=== PATIENT | male | born 1945 | race Caucasian/White ===

== ENCOUNTER 2016-09-11 17:13 | Inpatient (IN) ==
--- NOTE | 2016-09-11 17:52 | Diag Imaging Result Doc PS360 ---
EXAM: CHEST-2 VIEWS - 09/11/2016 HISTORY: sick TECHNIQUE: Chest two views COMPARISON: None. FINDINGS: Heart size is within normal limits. There is fullness of the upper mediastinum. There is a small granuloma from old granulomatous disease at the right base. The remainder of the lungs appear essentially clear. There is no pleural effusion or pneumothorax identified. There is thoracic spondylosis noted. IMPRESSION: Nonspecific fullness of upper mediastinum. If further imaging evaluation is desired, CT thorax is recommended. No evidence of pneumonia. Electronically signed by Ankit Lovett 09/11/2016 5:50 PM
[2016-09-11] MEDS ORDERED: OFIRMEV 1000 MG/ISOTONIC SOLN 1,000 MG/100 ML BOTTLE IV ONE (18:13)
[2016-09-11] MEDS ORDERED: NS 1,000 ML IV ONE ×2 (18:13→19:11)
[2016-09-11] MEDS ORDERED: ZOFRAN IV ONE (18:14)
[2016-09-11 18:58] LABS: BASO% 0.2 % (0.0-0.8); EOS# 0.05 X1000 (0.0-0.7); HEMATOCRIT 42.9 % (42.0-52.0); HEMOGLOBIN 14.1 g/dL (14.0-18.0); LYMPH# 0.22 X1000 (1.2-3.4); LYMPH% 4.4 % (20.5-51.1); MANUAL DIFF NEEDED? NO; MCH 28.6 PG (27-31); MCHC 32.9 g/dL (33-37); MONO# 0.01 X1000 (0.11-0.59); MONO% 0.2 % (1.7-9.3); MPV 10.8 FL (7.4-10.4); NEUT% 94.2 % (42.2-75.2); PLT 156 X1000 (130-400); RBC 4.93 XMIL (4.7-6.1)
[2016-09-11 18:59] LABS: ALBUMIN 4.1 g/dL (3.5-5.0); CALCIUM 8.9 mg/dL (8.8-10.2); MAGNESIUM 1.7 mg/dL (1.5-2.7); POTASSIUM 4.2 mmol/L (3.5-5.1); TOTAL BILIRUBIN 0.79 mg/dL (0.20-1.00); TOTAL PROTEIN 7.3 g/dL (6.3-8.3)
[2016-09-11] MEDS ORDERED: MORPHINE IV ONE (19:21)
[2016-09-11] MEDS ORDERED: TORADOL IV ONE (19:22)
[2016-09-11 19:40] LABS: URINE CULTURE NEEDED? NO; URINE MICRO REVIEW NEEDED? NO; URINE SOURCE CLEAN CATCH
[2016-09-11 19:54] LABS: BILIRUBIN URINE NEGATIVE (NEGATIVE); BLOOD URINE NEGATIVE (NEGATIVE); COLOR YELLOW; GLUCOSE URINE NEGATIVE (NEGATIVE); LEUKOCYTES URINE NEGATIVE (NEGATIVE); NITRITE URINE NEGATIVE (NEGATIVE); PROTEIN URINE TRACE mg/dL (NEGATIVE); SP GRAVITY URINE 1.015; TURBIDITY URINE CLEAR (CLEAR); UR EPITHELIAL CELLS <10 /HPF (<10); URINE BACTERIA NEGATIVE /HPF; URINE RBC <10 /HPF (<10); URINE WBC <10 /HPF (<10); UROBILINOGEN URINE NORMAL (NORMAL)
[2016-09-11] MEDS ORDERED: ZOSYN 3.375 GM/NS 3.375 GM/50 ML IVPB IV ONE (20:00)
[2016-09-11] MEDS ORDERED: VANCOMYCIN 1 GM/NS 1 GM/250 ML IVPB IV ONE (20:00)
--- NOTE | 2016-09-11 21:21 | Diag Imaging Result Doc PS360 ---
EXAM: RENAL STONE SEARCH - 09/11/2016 HISTORY: fever, hx of kidney stones TECHNIQUE: Without contrast. Dose reduction protocol. COMPARISON: 08/02/2014 FINDINGS: There is bilateral perinephric scarring. There is a possible tiny nonobstructing stone at the upper left kidney. There is no obstructing renal stone identified. There is no hydronephrosis identified. The larger urinary bladder stone seen on previous exam is no longer seen. The urinary bladder sanchez are mildly thickened diffusely similar to the previous exam. There is colonic diverticulosis which is most extensive at the sigmoid and distal descending colon. There is no obvious diverticulitis. There is no abscess or free air identified. There is no bowel obstruction. The appendix is unremarkable. There is a small fat-containing umbilical hernia. The gallbladder surgically absent. There are small retroperitoneal lymph nodes similar to the previous exam. There are lumbar spine degenerative changes noted. IMPRESSION: Possible tiny nonobstructing stone in upper left kidney. No evidence of obstructing renal stone or hydronephrosis. Possible urinary bladder cystitis versus chronic change. No urinary bladder stone identified. Extensive diverticulosis along distal colon. No obvious diverticulitis. No bowel obstruction. Small retroperitoneal lymph nodes similar to prior. Lumbar spine degenerative changes. Electronically signed by Ankit Lovett 09/11/2016 9:18 PM
--- NOTE | 2016-09-11 21:44 | PROVIDER DOCUMENTATION ---
This chart was entered by Isael Jorge Scribe, acting as scribe for Dao Sheehan MD. HPI-Fever - General Chief Complaint: Flu Symptoms Stated Complaint: VOMITING Time Seen by Provider: 09/11/16 17:20 Source: patient Allergies/Adverse Reactions: Patient Allergies Allergy/AdvReac Type Severity Reaction Status Date / Time tamsulosin HCl * AdvReac Unknown "MADE ME Verified 09/11/16 17:57 [From Flomax] FEEL BAD" Home Medications: Home Medication List Medication Instructions Recorded Confirmed Last Taken Type ATORVAstatin [Lipitor] 20 mg PO QHS 08/16/14 09/11/16 09/10/16 22:00 History Buspirone [Buspar] 15 mg PO BID 08/16/14 09/11/16 09/11/16 08:00 History Esomeprazole Magnesium [Nexium] 20 mg PO DAILY 08/16/14 09/11/16 09/11/16 08:00 History Aspirin [Aspirin EC] 81 mg PO DAILY 09/04/15 09/11/16 09/11/16 08:00 History - History of Present Illness-Fever Nature of Presenting Problem: Pt is a 71 yom who presents to ER with CC of sudden onset of chills and generalized muscle aches starting at 1230 today after getting out of the shower. Pt reports recent hx of renal stones and also reports hx of neuropathy and stubbed his toes several days ago and states that his wound is not healing. Pt reports that he did not check his temperature at home, but states that his thermostat was set on 74 F, but pt felt as though is were 0 F. Pt also reports 2 episodes of emesis today and mild to moderate abdominal pain. Fever Severity/Quality: reports: greater than 102 F (checked in ER) Onset/Duration: reports: abrupt, this afternoon (1230) Timing: reports: still present Severity: reports: moderate Context: reports: none Recent Illness?: reports: other (renal stones) Cognitive Baseline: alert, oriented x3 Associated Symptoms: reports: fever/chills, headaches, muscle aches, nausea, vomiting. denies: arm pain, back/neck pain, chest pain, cough, diarrhea, loss of appetite, shortness of breath, syncope, weakness, trouble walking Similar Symptoms Previously?: Yes Recently seen or treated by another doctor?: Yes Review of Systems - Adult - REVIEW OF SYSTEMS - ADULT Constitutional: reports: chills, fever. denies: fatique, night sweats, weight gain, weight loss Eyes: reports: other (photophobia). denies: discharge, dry eyes, decreased vision, blurred vision, double vision, eye pain, redness Ears, Nose, Mouth & Throat: reports: no symptoms reported Cardiovascular: reports: no symptoms reported Respiratory: reports: no symptoms reported Gastrointestinal: reports: nausea, vomiting. denies: abdominal pain, hematemesis, constipation, diarrhea, difficulty swallowing, frequent heartburn, poor appetite, rectal bleeding Genitourinary: reports: no symptoms reported Musculoskeletal: reports: muscle aches, muscle weakness. denies: bone pain, back pain, frequent leg cramps, joint pain, joint swelling, neck pain Integumentary: reports: no symptoms reported Neurological: reports: headache/migraines. denies: ataxia, dizziness/vertigo, loss of balance, numbness, paresthesia, seizure, slurred speech, syncope, tremors Psychiatric: reports: no symptoms reported Endocrine: reports: no symptoms reported Hematologic/Lymphatic: reports: no symptoms reported Allergic/Immunologic: reports: no symptoms reported All Other Systems: Reviewed and Negative Past History - Adult - PAST MEDICAL HISTORY-ADULT Review of Records: reports: Nursing Assessment Review, Medications Reviewed Cardiovascular: reports: A-Fib (non medicated), hyperlipidemia Genitourinary: reports: kidney stones. denies: chronic UTI's, prostatitis, testicular injury - PRIOR SURGERIES/PROCEDURES Surgical/Procedure History: reports: other (renal stone surgeries) - IMMUNIZATION STATUS Childhood Immunizations: See Nurse Assessment Flu Vaccine: See Nurse Assessment - FAMILY HISTORY Family History: reviewed, not pertinent Physical Exam-General - PHYSICAL EXAM-ADULT Initial Vital Signs Reviewed: Yes - CONSTITUTIONAL General Appearance: appears well, alert, mild distress - NECK Neck: non-tender, full range of motion, supple - RESPIRATORY Respiratory: chest non-tender, lungs clear, normal breath sounds, no pleuratic chest pain, no respiratory distress, no accessory muscle use. negative: respiratory distress, decreased breath sounds, accessory muscle use, wheezing - CARDIOVASCULAR Cardiovascular: normal peripheral pulses, regular rate, rhythm. negative: bradycardia, tachycardia, irregularly irregular - GASTROINTESTINAL (ABDOMEN) Abdominal Exam: normal bowel sounds, non tender, soft, no organomegaly, no pulsatile mass. negative: abnormal bowel sounds, guarding, rebound, tenderness - MUSCULOSKELETAL Back Exam: no CVA tenderness, no vertebral tenderness. negative: CVA tenderness , vertebral tenderness Extremity: normal range of motion, normal gait, normal inspection, no pedal edema, no calf tenderness, normal capillary refill, pelvis stable, tenderness ( bruise on 3rd toe of right foot, no signs of laceration or trauma). negative: non-tender, deformity, erythema, inflammation, swelling - SKIN Integumentary: tenderness (right foot, 3rd toe), other (bruise on 3rd toe of right foot). negative: abrasion(s), diaphoresis, ecchymosis, erythema, laceration(s), swelling, warm - PSYCHIATRIC Psych/Mental Status: normal mood/affect, normal thought content, normal thought process, oriented x 3 Progress - PLAN OF CARE/RESULTS Progress/Plan/Lab Results: Vital Signs - 8 hr 09/11/16 17:16 Temperature 102.6 F H Pulse Rate 92 H Respiratory Rate 18 Blood Pressure 133/74 O2 Sat by Pulse Oximetry 100 Laboratory Results - last 24 hr 09/11/16 09/11/16 09/11/16 18:14 18:14 18:14 WBC 5.04 RBC 4.93 Hgb 14.1 Hct 42.9 MCV 87.0 MCH 28.6 MCHC 32.9 L RDW Std Deviation 14.4 Plt Count 156 MPV 10.8 H Immature Gran % (Auto) 0.0 Neut % (Auto) 94.2 H Lymph % (Auto) 4.4 L Kershaw % (Auto) 0.2 L Eos % (Auto) 1.0 Baso % (Auto) 0.2 Immature Gran # (Auto) 0.00 Neut # (Auto) 4.75 Lymph # (Auto) 0.22 L Kershaw # (Auto) 0.01 L Eos # (Auto) 0.05 Baso # (Auto) 0.01 Sodium 142 Potassium 4.2 Chloride 103 Carbon Dioxide 22 L Anion Gap 17 BUN 19 Creatinine 1.3 H Estimated GFR/1.73 m2 54 BUN/Creatinine Ratio 15 Glucose 90 Calculated Osmolality 285 Calcium 8.9 Magnesium 1.7 Total Bilirubin 0.79 AST 31 ALT 33 Alkaline Phosphatase 74 Total Protein 7.3 Albumin 4.1 Globulin 3.2 Albumin/Globulin Ratio 1.3 Plasma Lactate 2.6 H Urine Source Urine Color Urine Turbidity Urine pH Ur Specific Hilton Urine Protein Ur Glucose (Stick) Ur Ketones (Stick) Urine Blood Urine Nitrite Urine Bilirubin Urobilinogen Dipstick Urine Leukocytes Urine WBC (Auto) Urine RBC (Auto) U Epithel Cells (Auto) Urine Bacteria (Auto) 09/11/16 09/11/16 19:24 19:27 WBC RBC Hgb Hct MCV MCH MCHC RDW Std Deviation Plt Count MPV Immature Gran % (Auto) Neut % (Auto) Lymph % (Auto) Kershaw % (Auto) Eos % (Auto) Baso % (Auto) Immature Gran # (Auto) Neut # (Auto) Lymph # (Auto) Kershaw # (Auto) Eos # (Auto) Baso # (Auto) Sodium Potassium Chloride Carbon Dioxide Anion Gap BUN Creatinine Estimated GFR/1.73 m2 BUN/Creatinine Ratio Glucose Calculated Osmolality Calcium Magnesium Total Bilirubin AST ALT Alkaline Phosphatase Total Protein Albumin Globulin Albumin/Globulin Ratio Plasma Lactate 2.5 H Urine Source CLEAN CATCH Urine Color YELLOW Urine Turbidity CLEAR Urine pH 6.0 Ur Specific Hilton 1.015 Urine Protein TRACE A Ur Glucose (Stick) NEGATIVE Ur Ketones (Stick) NEGATIVE Urine Blood NEGATIVE Urine Nitrite NEGATIVE Urine Bilirubin NEGATIVE Urobilinogen Dipstick NORMAL Urine Leukocytes NEGATIVE Urine WBC (Auto) <10 Urine RBC (Auto) <10 U Epithel Cells (Auto) <10 Urine Bacteria (Auto) NEGATIVE Orders Category Date Time Status CHEST-2 VIEWS [RAD] Stat Exams 09/11/16 17:21 Completed RENAL STONE SEARCH [CT] Stat Exams 09/11/16 19:22 Completed BLOOD CULTURE [BLDCUL] Stat Lab 09/11/16 18:14 Results CBC WITH ELECTRONIC DIFF [HEME] Stat Lab 09/11/16 18:14 Completed COMPREHENSIVE METABOLIC PANEL [CHEM] Stat Lab 09/11/16 18:14 Completed LACTATE, PLASMA [CHEM] Stat Lab 09/11/16 18:14 Completed LACTATE, PLASMA [CHEM] Stat Lab 09/11/16 19:24 Completed MAGNESIUM [CHEM] Stat Lab 09/11/16 18:14 Completed URINALYSIS W/POSS RFLX CULT-1 [URINALYSIS] Stat Lab 09/11/16 19:27 Completed 0.9% Sodium Chloride Inj [Ns] 1,000 ml Med 09/11/16 18:13 Discontinued IV 999 mls/hr 0.9% Sodium Chloride Inj [Ns] 1,000 ml Med 09/11/16 19:11 Discontinued IV 999 mls/hr Acetaminophen [Ofirmev 1000 mg/Isotonic Soln] Med 09/11/16 18:13 Discontinued 1,000 mg in 100 ml IV NOW Ketorolac [Toradol] Med 09/11/16 19:22 Discontinued 30 mg IV NOW ONE Morphine Med 09/11/16 19:21 Discontinued 4 mg IV NOW ONE Ondansetron [Zofran] Med 09/11/16 18:14 Discontinued 4 mg IV NOW ONE Piperacil/Tazobact 3.375 gm/Ns [Zosyn 3.375 gm/Ns] Med 09/11/16 20:00 Discontinued 3.375 gm in 50 ml IV NOW Vancomycin 1 gm/Ns Med 09/11/16 20:00 Discontinued 1 gm in 250 ml IV NOW Result Diagrams: 09/11/16 18:14 09/11/16 18:14 - XRAY 1 XRAY: Bilateral XRAY Study: Chest Impression: See EMR Report (Nonspecific fullness of upper mediastinum. No evidence of pneumonia - Dr. Lovett (Radiologist)) XRAY Interpretation: See report - CT/MRI 1 CT Study: Renal Stone Impression: See EMR Report (Possible tiny nonobstructing stone in the upper left kidney. No evidence of obstructing renal stone or hydronephrosis. Possible urinary bladder cystitis versus chronic changes. No urinary bladder stone identified. Extensive diverticulosis along the distal colon. No obvious diverticulitis. No bowel obstruction. Small retroperitoneal lymph nodes similar to prior. Lumbar spine degenerative changes. - Dr. Lovett (Radiologist)) Departure - Departure Date of Disposition Decision: 09/11/16 Time of Disposition Decision: 21:44 DIAGNOSIS: Acute febrile illness Disposition: ADMITTED INPATIENT 09 Certified Medical Emergency: Emergent Condition: Fair Referrals and Follow-Ups: Christopher Griffith MD [Primary Care Provider] - - Critical Care Note This patient required my direct & personal management of CC.: No Attestation - Physician/ MONA Attestation Patient care was provided by Advanced Practice Provider:: No The physician spent face to face time with patient:: Yes Advanced Practice Provider documentation review:: Supervising physician onsite and consulted in the evaluation and care of this patient. The physician did have a face to face encounter with the patient. This chart was documented by the indicated scribe, (Isael Jorge, [place]) and accurately reflects the services I performed and decisions made by me, Dao Sapp MD, as attested by the provider's signature.
[2016-09-11] MEDS ORDERED: TYLENOL PO PRN (23:19)
--- NOTE | 2016-09-12 00:59 | HISTORY AND PHYSICAL ---
PRIMARY CARE PHYSICIAN: Dr. Griffith. CHIEF COMPLAINT: Fever and back pain. HISTORY OF PRESENT ILLNESS: Mr. Henry is a 71-year-old male with a past medical history of nephrolithiasis, BPH, and hyperlipidemia, who comes to the hospital complaining of back pain and fever. According to the patient, earlier this evening he started having severe back pain and chills and cramps in his legs. Patient could not stay warm and he asked his to bring him to the hospital. On his way to the hospital he vomited times 4 and states that his back pain started getting increasingly worse. REVIEW OF SYSTEMS: Negative except as stated above. In the emergency room, he was given ketorolac, morphine, Zofran, Zosyn and vancomycin. PAST MEDICAL HISTORY: Nephrolithiasis, BPH, hyperlipidemia. PAST SURGICAL HISTORY: Transurethral resection of the prostate in 2014, lithotripsy August 2015, cholecystectomy and appendectomy. ALLERGIES: None. HOME MEDICATIONS: 1. Omeprazole 20 mg tablet oral daily. 2. Atorvastatin 20 mg tablet oral at bedtime. 3. Buspirone 50 mg tablet oral twice a day. 4. Aspirin 81 mg tablet oral daily. SOCIAL HISTORY: Patient stopped smoking 15 years ago. Patient has not had any alcohol in the last 4 years. Does not use any illicit drugs. Patient lives at home with his and his mother- in-law. FAMILY HISTORY: Positive for MIs on his father's side, brother with a pulmonary embolism, mother at age 46 of an accident possibly triggered by a brain aneurysm. LABORATORY DATA: White blood cell count 5. Hemoglobin 14.1. Hematocrit 43. Platelets 156. Sodium 142. Potassium 4.2. BUN 19. Creatinine 1.3. Lactate 2.6. Urinalysis negative for UTI. IMAGING: Chest x-ray: Nonspecific fullness of mediastinum. Renal CT shows possible tiny nonobstructing stone in upper left kidney. No evidence of obstructing renal stone or hydronephrosis. Possible urinary bladder cystitis versus chronic change. Extensive diverticulosis along the distal colon. PHYSICAL EXAMINATION: VITALS: Temperature initially 102.6, pulse 92, respirations 18, blood pressure 133/74, oxygen saturation 100% on room air. GENERAL: Patient is alert and oriented times 3, no acute disease. HEENT: Head normocephalic, atraumatic. Eyes PERRL. Moist mucous membranes. NECK: Supple. PULMONARY: Well ventilated bilaterally. No wheezing, rales or crackles. CARDIOVASCULAR: S1, S2. No rubs, murmurs or gallops. ABDOMEN: Soft, nondistended, nontender. Umbilical hernia present nonincarcerated. EXTREMITIES: No lower extremity edema. NEUROLOGIC: Cranial nerves II through XII grossly intact. No focal deficits. PSYCHIATRIC: Normal mood and affect. ASSESSMENT AND PLAN: 1. Acute febrile illness. Source of infection is unclear given that his chest x-ray was negative and this urinalysis is negative for UTI. It is possible that this is an early cystitis. We will recheck a CBC in the morning and a lactic acid as well. At the moment, we will not continue any antibiotics. As mentioned above, he was already given in the emergency room Zosyn and vancomycin. 2. Nephrolithiasis, stable. As mentioned above, patient has history of recurrent kidney stones and apparently he has a very small nonobstructing stone in the upper left kidney. We will continue to monitor. If patient continues having pain, we will manage it with ketorolac. 3. Benign prostatic hypertrophy, stable. Patient has no current home medication. If needed, we will start Flomax. 4. Hyperlipidemia. We will continue patient's home medication atorvastatin. cc: MD Christopher Castellanos MD
[2016-09-12 08:04] LABS: HEMATOCRIT 35.7 % (42.0-52.0); HEMOGLOBIN 11.8 g/dL (14.0-18.0); MCH 29.3 PG (27-31); MCHC 33.1 g/dL (33-37); MCV 88.6 FL (81-99); MPV 11.1 FL (7.4-10.4); RBC 4.03 XMIL (4.7-6.1)
--- NOTE | 2016-09-12 12:04 | Diag Imaging Result Doc PS360 ---
EXAM: CT THORAX W/CONTRAST - 09/12/2016 HISTORY: widened mediastinum TECHNIQUE: With intravenous contrast. Dose reduction protocol. COMPARISON: 09/11/2016 chest radiographs FINDINGS: There are apparent mild COPD changes. There are right midlung calcified granuloma and calcified right hilar mediastinal lymph nodes from old granulosis disease. There is scarring at the paraspinal right lower lobe near thoracic osteophytes. There is a 7 mm noncalcified nodule versus components of scarring at the posterior right lower lobe (image 80). There is a 6 mm ovoid nodular density at the superior left lower lobe (image 66) there is an 8 mm nodular opacity at the right lower lobe abutting the major fissure (image 65). There is no consolidation or pneumothorax identified. There are trace bilateral pleural effusions. There are no abnormally enlarged noncalcified mediastinal or hilar lymph nodes identified. There is no mediastinal mass identified. The fullness of the upper mediastinal seen on the recent chest radiograph apparently represented normal structures which were exaggerated by the mildly lordotic AP projection the frontal view. Included sections of upper abdomen show fatty infiltration of the liver. There are postsurgical changes of cholecystectomy. IMPRESSION: Apparent mild COPD changes. Old granulomatous disease. Mild right lower lobe scarring adjacent to thoracic spine osteophytes. A few scattered nonspecific subcentimeter nodular opacities. Follow-up in about three months is recommended. No pneumonia. No evidence of mediastinal mass or adenopathy. Electronically signed by Ankit Lovett 09/12/2016 12:02 PM
[2016-09-12] MEDS: UNASYN 3 GM/NS 3 GM/100 ML IVPB IV SCH ×2 (12:26→17:08)
[2016-09-12] MEDS ORDERED: PHENERGAN IV PRN (12:38)
[2016-09-12] MEDS ORDERED: SODIUM CHLORIDE 0.9% INJ PRN (12:38)
[2016-09-12] MEDS ORDERED: PROSOM PO PRN (12:39)
[2016-09-12] MEDS: LEVAQUIN PO SCH (13:39)
--- NOTE | 2016-09-12 15:02 | PROGRESS NOTE ---
DATE: 09/12/2016 SUBJECTIVE: The patient says he is starting to feel a little bit better. We did get a call and said that he was growing gram-negative tom on his blood culture. I asked him about abdominal pain and he has not really had any. He has had kidney stones in the past and had bilateral lower back pain that he thought might be a stone but his urine is normal. I asked him if he had ever had a prostatitis and he said no but that Dr. Mcnally had checked him about 2 weeks ago and it was normal at that time. I explained to him that things can change and I wanted to do a rectal exam on him. OBJECTIVE: Vital signs: Blood pressure is 115/64, respirations 20, pulse rate 55 and regular, temperature 98.2 degrees Fahrenheit. HEENT: Normocephalic. EOMs intact. PERRLA. Throat clear. Lungs: Clear to auscultation and percussion without rhonchi, rales, or wheezes. Heart: Regular rate, rhythm without murmurs, gallops, or friction rubs. Abdomen: Soft. Active bowel sounds. No organomegaly or tenderness. He does tell me that he had chills and fever and sweats at home before he came to the emergency room. Rectal Exam: Shows a 2+ enlarged prostate gland, is very tender, he says feels very different than when Dr. Mcnally did his exam a couple of weeks ago. He is much more tender now. I believe that he has a prostatitis and possibly now has a sepsis from the prostatitis. Neurological: Intact grossly. LABS: Urine culture is pending. Blood cultures are preliminary with 1 culture showing gram- negative tom. White count initially was 5040 a little before midnight yesterday and is up to 11,800 now. Urine was negative. ASSESSMENT: 1. Possible early sepsis with 1 positive blood culture. 2. Prostatitis, possible cause of sepsis. 3. Hyperlipidemia. 4. Anxiety. 5. Gastroesophageal reflux disease. It should also be noted that his chest x-ray reported a wide mediastinum and was suggested we might consider a CT scan of the chest by radiology. We went ahead and did that today and it showed some emphysematous type changes but no particular widening of the mediastinum. PLAN: We will restart antibiotics with Unasyn and I will add Levaquin to his regimen. cc: MD Christopher Schneider Jr, MD
[2016-09-13] MEDS: UNASYN 3 GM/NS 3 GM/100 ML IVPB IV SCH ×4 (00:36→18:34)
[2016-09-13] MEDS: LEVAQUIN PO SCH (08:27)
--- NOTE | 2016-09-13 08:52 | PROGRESS NOTE ---
DATE: 09/13/2016 SUBJECTIVE: Patient feeling better overall. OBJECTIVE: Vital Signs: T-max 99.3 degrees, T-current 99.3, blood pressure 132/59, pulse 71, O2 saturation 94-97% on room air. CV: RRR without murmur. Lungs: CTA. Abdomen: Soft, nontender, nondistended. Extremities: No calf tenderness, cords, or edema. Laboratory Data: Microbiology reveals urine no growth. One of two blood cultures growing gram- negative rods. CT of chest reveals COPD and granulomatous changes, scarring of right lower lobe, prominent thoracic spine osteophytes, a few scattered nonspecific subcentimeter nodular opacities. No evidence of pneumonia or mediastinal mass or adenopathy. ASSESSMENT: 1. Acute prostatitis. 2. One of two blood cultures positive with gram-negative rods. 3. Hyperlipidemia. 4. Anxiety. 5. Gastroesophageal reflux disease. 6. Mildly abnormal CT scan with chronic obstructive pulmonary disease and granulomatous changes. PLAN: We will continue IV Unasyn. Add MiraLAX for mild constipation. Continue oral Levaquin. Monitor electrolytes closely. Possible discharge home tomorrow if patient continues to improve. Resume home medications. cc: Christopher Griffith MD
[2016-09-13] MEDS: MIRALAX PO SCH ×2 (09:23→10:08)
[2016-09-13] MEDS: PRILOSEC PO SCH ×2 (09:23→10:08)
[2016-09-13] MEDS: BUSPAR PO SCH ×2 (10:08→20:48)
[2016-09-13] MEDS: ASPIRIN EC PO SCH (10:08)
[2016-09-13 10:32] LABS: MANUAL DIFF NEEDED? NO
[2016-09-13 10:40] LABS: BASO% 0.3 % (0.0-0.8); EOS% 1.4 % (0.0-10.0); HEMATOCRIT 41.6 % (42.0-52.0); HEMOGLOBIN 13.7 g/dL (14.0-18.0); LYMPH# 1.28 X1000 (1.2-3.4); LYMPH% 18.3 % (20.5-51.1); MCH 28.8 PG (27-31); MCHC 32.9 g/dL (33-37); MCV 87.4 FL (81-99); MONO# 0.55 X1000 (0.11-0.59); MONO% 7.9 % (1.7-9.3); MPV 10.7 FL (7.4-10.4); NEUT% 72.1 % (42.2-75.2); PLT 120 X1000 (130-400); RBC 4.76 XMIL (4.7-6.1)
[2016-09-13] MEDS ORDERED: LIPITOR PO SCH (21:00)
[2016-09-14] MEDS: UNASYN 3 GM/NS 3 GM/100 ML IVPB IV SCH ×3 (02:16→07:02)
[2016-09-14] MEDS: PRILOSEC PO SCH ×2 (05:44→06:08)
[2016-09-14] MEDS: LEVAQUIN PO SCH (08:30)
[2016-09-14] MEDS: BUSPAR PO SCH (08:30)
[2016-09-14] MEDS: MIRALAX PO SCH (08:30)
[2016-09-14] MEDS: ASPIRIN EC PO SCH (08:30)
[2016-09-14 11:57] VITALS: BP 153/76
--- NOTE | 2016-09-14 14:11 | DISCHARGE SUMMARY ---
ADMISSION DATE: 09/11/2016 DISCHARGE DATE: 09/14/2016 DIAGNOSES: 1. Acute prostatitis. 2. 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 3. Left nephrolithiasis. 4. Benign prostatic hypertrophy. 5. Hyperlipidemia. 6. Mild anxiety. 7. Hypercholesterolemia. PROCEDURES: 1. Chest x-ray done 09/11/2016 revealed no evidence of pneumonia. Nonspecific fullness upper mediastinum with CT thorax recommended. 2. CT renal stone search revealing tiny nonobstructing stones upper left kidney. No other renal stone or hydronephrosis. Possible urinary bladder cystitis versus chronic change. No urinary bladder stone. Extensive diverticulosis along the distal colon without obvious diverticulitis. Small retroperitoneal lymph nodes, similar to prior examination. Lumbar spine degenerative changes prominent. 3. CT chest done 09/12/2016 revealed apparent mild COPD changes with old granulomatous disease, mild right lower lobe scarring adjacent to thoracic spine osteophytes. Scattered nonspecific subcentimeter nodular opacities with recommendation for followup CT in 3 months. No pneumonia, no mediastinal mass or adenopathy. REASON FOR ADMISSION AND HOSPITAL COURSE: The patient is a 71-year-old white male who came in with severe back pain, chills, cramps in his legs, could not stay warm. He had vomited 4 times. Symptoms had started abruptly. He does have a history of prostatitis in the past treated by Dr. Mart years ago and was intolerant to Flomax at that time. He came in and rectal exam confirmed possible prostatitis. Blood cultures x2 were obtained and 1 of the 2 came back positive for E. coli. Urine culture was negative. LABS: White count at 5 on admission went up to 11.8 the next day, and down to 6.98 by discharge. Hemoglobin was acceptable in the 12-14 range. Platelets 120-156 with a left shift on admission. LFTs were normal as was magnesium, calcium, glucose 90, BUN and creatinine 19 and 1.3 at admission, was 16 and 1.2 at discharge. Sodium 142, potassium 4.2, plasma lactate was elevated at 2.6 on admission down to 1.6 after treatment with antibiotics. The patient was treated with IV Unasyn and oral Levaquin and he responded well for possible prostatitis, and he had no fever and chills resolved. He began to feel better. He will need repeat CT thorax done in about 3 months and I will set that up through my office as a recheck in 2-3 weeks. DISCHARGE MEDICATIONS: 1. Aspirin 81 mg daily. 2. Tylenol p.r.n. 3. Lipitor 20 mg p.o. at bedtime. 4. BuSpar 15 mg p.o. b.i.d. 5. Levaquin 750 mg p.o. daily. 6. Nexium 20 mg p.o. daily. cc: Christopher Griffith MD
== END 2016-09-14 14:42 | disposition home or self-care (01) ==
LOC: ED 17:13 → 4N 17:13 → SUATTDRO 23:11 → 4N 23:17
PROVIDERS: ADMIT Family Medicine; ATTEND Family Medicine

== ENCOUNTER 2018-07-12 15:28 | Inpatient (IN) ==
[2018-07-12] MEDS ORDERED: SEPTRA DS PO ONE (15:46)
[2018-07-12] MEDS ORDERED: ZOFRAN IV ONE (15:46)
[2018-07-12] MEDS ORDERED: NS 1,000 ML IV ONE ×2 (15:48→17:45)
[2018-07-12 16:37] LABS: URINE SOURCE CLEAN CATCH
[2018-07-12 16:55] LABS: BILIRUBIN URINE NEGATIVE (NEGATIVE); BLOOD URINE NEGATIVE (NEGATIVE); COLOR YELLOW; GLUCOSE URINE NEGATIVE (NEGATIVE); KETONE URINE NEGATIVE (NEGATIVE); LEUKOCYTES URINE NEGATIVE (NEGATIVE); NITRITE URINE NEGATIVE (NEGATIVE); PROTEIN URINE TRACE mg/dL (NEGATIVE); SP GRAVITY URINE 1.024; TURBIDITY URINE CLEAR (CLEAR); UROBILINOGEN URINE NORMAL (NORMAL)
[2018-07-12 16:57] LABS: UR EPITHELIAL CELLS <10 /HPF (<10); URINE BACTERIA NEGATIVE /HPF; URINE RBC <10 /HPF (<10); URINE WBC <10 /HPF (<10)
[2018-07-12 17:06] LABS: BASO# 0.01 X1000 (0.0-0.2); BASO% 0.1 % (0.0-0.8); EOS# 0.04 X1000 (0.0-0.7); EOS% 0.5 % (0.0-10.0); HEMATOCRIT 42.9 % (42.0-52.0); HEMOGLOBIN 14.2 g/dL (14.0-18.0); IMM GRAN# 0.02 X1000 (0.0-0.04); IMM GRAN% 0.3 % (0.0-0.5); LYMPH# 0.37 X1000 (1.2-3.4); LYMPH% 4.9 % (20.5-51.1); MCH 28.1 PG (27-31); MCHC 33.1 g/dL (33-37); MONO# 0.25 X1000 (0.11-0.59); MONO% 3.3 % (1.7-9.3); MPV 10.2 FL (7.4-10.4); NEUT# 6.83 X1000 (1.4-6.5); NEUT% 90.9 % (42.2-75.2); PLT 147 X1000 (130-400); RBC 5.05 XMIL (4.7-6.1); RDW 14.1 % (11.5-14.5); WBC 7.52 X1000 (4.8-10.8)
[2018-07-12 17:13] LABS: ALB/GLOB RATIO 1.2; ALBUMIN 3.8 g/dL (3.5-5.0); CALCIUM 8.2 mg/dL (8.8-10.2); CREATININE 1.2 mg/dL (0.7-1.2); POTASSIUM 4.2 mmol/L (3.5-5.1); TOTAL BILIRUBIN 0.87 mg/dL (0.20-1.00); TOTAL PROTEIN 6.9 g/dL (6.3-8.3)
[2018-07-12] MEDS ORDERED: SODIUM CHLORIDE 0.9% INJ ONE ×2 (17:21→17:22)
[2018-07-12] MEDS ORDERED: PHENERGAN IV ONE (17:21)
[2018-07-12] MEDS ORDERED: PROTONIX IV ONE (17:22)
--- NOTE | 2018-07-12 17:44 | PROVIDER DOCUMENTATION ---
This chart was entered by Mamta Person Scribe, acting as scribe for Lan Alonzo MD. HPI-General Adult - General Chief Complaint: N/V/D Stated Complaint: n/v/d Time Seen by Provider: 07/12/18 15:48 Source: patient Allergies/Adverse Reactions: Patient Allergies Allergy/AdvReac Type Severity Reaction Status Date / Time tamsulosin HCl * AdvReac Unknown "MADE ME Verified 09/11/16 17:57 [From Flomax] FEEL BAD" Home Medications: Home Medication List Medication Instructions Recorded Confirmed Last Taken Type ATORVAstatin [Lipitor] 20 mg PO QHS 08/16/14 09/11/16 09/10/16 22:00 History Buspirone [Buspar] 15 mg PO BID 08/16/14 09/11/16 09/11/16 08:00 History Esomeprazole Magnesium [Nexium] 20 mg PO DAILY 08/16/14 09/11/16 09/11/16 08:00 History Aspirin [Aspirin EC] 81 mg PO DAILY 09/04/15 09/11/16 09/11/16 08:00 History Acetaminophen [Tylenol] 650 mg PO Q6H PRN PRN #0 tablet 09/14/16 Unknown Rx Levofloxacin [Levaquin] 750 mg PO DAILY #18 tablet 09/14/16 Unknown Rx - History of Present Illness -Gen Adult Nature of Presenting Problems: Patient is a 73 year old male who presents with nausea, vomiting and diarrhea that started this morning at 0900. Patient states he was on his lawnmower and dropped and felt pain in prostate. Does not report urinary symptoms. Location of Pain/Injury: reports: other (prostate) Pain Radiation: reports: no radiation Quality of Pain: reports: aching Severity: reports: mild Onset/Duration: reports: this morning Timing: reports: still present Context/Activities at Onset: reports: light activity Modifying Factors: improves with: nothing Associated Symptoms: reports: diarrhea, nausea, vomiting Similar Symptoms Previously?: Yes Recently seen or treated by another doctor?: No Review of Systems - Adult - REVIEW OF SYSTEMS - ADULT Constitutional: reports: no symptoms reported. denies: chills, fever, fatique Eyes: reports: no symptoms reported Ears, Nose, Mouth & Throat: reports: no symptoms reported Cardiovascular: reports: no symptoms reported Respiratory: reports: no symptoms reported Gastrointestinal: reports: see HPI, diarrhea, nausea, vomiting. denies: abdomin al pain Genitourinary: reports: see HPI, other (prostate pain). denies: dysuria, hematuria Musculoskeletal: reports: no symptoms reported Integumentary: reports: no symptoms reported Neurological: reports: no symptoms reported Psychiatric: reports: no symptoms reported Endocrine: reports: no symptoms reported Hematologic/Lymphatic: reports: no symptoms reported Allergic/Immunologic: reports: no symptoms reported All Other Systems: Reviewed and Negative Past History - Adult - PAST MEDICAL HISTORY-ADULT Review of Records: reports: Old Records Reviewed, Nursing Assessment Review, Medications Reviewed, Social history reviewed & non-contributory. Major Childhood Illnesses: reports: denies history Cardiovascular: reports: A-Fib (non medicated), HTN, hyperlipidemia Respiratory: reports: denies history Gastrointestinal: reports: GERD Obstetrical/Gynecological: reports: denies history Genitourinary: reports: kidney stones. denies: chronic UTI's, prostatitis, testicular injury Musculoskeletal: reports: denies history Neurological: reports: denies history Endocrine/Immune: reports: Diabetes Other Conditions: reports: denies history - PRIOR SURGERIES/PROCEDURES Surgical/Procedure History: reports: appendectomy, cholecystectomy, other (renal stone surgeries) - IMMUNIZATION STATUS Childhood Immunizations: See Nurse Assessment Flu Vaccine: See Nurse Assessment - FAMILY HISTORY Family History: reviewed, not pertinent - SOCIAL HISTORY Smoking: cigarettes (former) Substance Use: denies Living Situation: family Physical Exam-General - PHYSICAL EXAM-ADULT Initial Vital Signs Reviewed: Yes - CONSTITUTIONAL General Appearance: alert, no apparent distress. negative: lethargic, slow to respond - HEAD, EARS, NOSE, MOUTH & THROAT HENMT: normocephalic/atraumatic, moist mucous membranes. negative: angioedema, hearing deficit - RESPIRATORY Respiratory: chest non-tender, lungs clear, normal breath sounds. negative: crackles, rhonchi, wheezing - CARDIOVASCULAR Cardiovascular: normal peripheral pulses, regular rate, rhythm. negative: tachycardia, systolic murmur - GASTROINTESTINAL (ABDOMEN) Abdominal Exam: normal bowel sounds, non tender, soft. negative: guarding, rebound - GENITOURINARY Rectal Exam: prostate enlarged/nodule (enlarged), other (prostate tenderness) - MUSCULOSKELETAL Extremity: non-tender, normal inspection. negative: deformity, erythema - SKIN Integumentary: normal color, normal turgor, warm/dry. negative: cyanosis, ecchymosis, erythema, pallor, rash - NEUROLOGIC Neurologic: grossly normal. negative: aphasia, facial droop - PSYCHIATRIC Psych/Mental Status: normal mood/affect, oriented x 3. negative: anxious Progress - PLAN OF CARE/RESULTS Progress/Plan/Lab Results: Vital Signs - 8 hr 07/12/18 15:36 Temperature 98.4 F Pulse Rate 74 Respiratory Rate 18 Blood Pressure 112/64 O2 Sat by Pulse Oximetry 98 Orders Category Date Time Status CBC WITH ELECTRONIC DIFF [HEME] Stat Lab 07/12/18 15:44 Uncollected COMPREHENSIVE METABOLIC PANEL [CHEM] Stat Lab 07/12/18 15:44 Uncollected UA [URINALYSIS W/POSS RFLX CULT] [URINALYSIS] Stat Lab 07/12/18 15:44 Uncollected Ns 1000 ml IV Bolus X1 Med 07/12/18 15:48 Ordered 0.9% Sodium Chloride Inj [Ns] 1,000 ml IV 999 mls/hr Ondansetron [Zofran] Med 07/12/18 15:46 Discontinued 4 mg IV NOW ONE Sulfamethoxazole/Tmp D.s. [Septra Ds] Med 07/12/18 15:46 Discontinued 1 each PO NOW ONE A/P; Prostatitis and dehydration. Spoke with Dr Larose and will admit fro IV antibiotics and fluid recessation. Result Diagrams: 07/12/18 16:16 07/12/18 16:16 - CONSULTS/PCP/HOSPITALIST Notification #1 *Consult/PCP/Hospitalist*: Dr Larose Time Discussed: 17:43 Consult Disposition: Admit Departure - Departure Date of Disposition Decision: 07/12/18 Time of Disposition Decision: 15:59 DIAGNOSIS: Prostatitis, Dehydration Disposition: ADMITTED INPATIENT 09 Certified Medical Emergency: Emergent Condition: Stable Additional Freetext Instructions: ED Follow Up Instructions: You have been treated by a care provider in the Emergency Department. These instructions are being provided to you so you can have an understanding of how to care for yourself upon discharge. Upon discharge from the Emergency Department, you are responsible for making arrangements for follow-up care by a physician of your choice. Take all prescribed medications as directed. Return to the Emergency Department immediately for any new or worsening symptoms. You may call the Physician Referral phone number at [phone] to obtain a list of Physicians who are taking new patients. We have examined and treated you today on an emergency basis only. This was not a substitute for, or an effort to provide, complete medical care. In most cases, you must let your doctor check you again. Tell your doctor about any new or lasting problems. We cannot recognize and treat all injuries or illnesses in one Emergency Department visit. If you had special tests, such as X-rays or CT scans, will be reviewed by radiologist and will call you if there are any new suggestions Follow up with primary care provider in 1 to 2 days if no improvement. If you do not have a primary care provider, you need to choose one as soon as possible. Take medicines as prescribed. Monitor for any side effects or adverse events from medications. If any side effect, adverse event or rash develops, or if you suspect any other adverse reaction to the medication, then discontinue the medication immediately and contact clinic /PCP or go to the nearest ER. Narcotic meds / sedative meds instruction - patent advised not to drive, operate any machinery or go into water after taking meds as it may impair mental ability to react to the situation in an appropriate manner. Continue other current medicines. Follow up with PCP within 24-48 hours, or sooner if symptoms worsen or fail to improve. Patient / guardian verbalizes understanding of treatment plan, medication, and side effects and agrees with treatment plan. Patient leaves ER in stable condition and ambulatory state. Return to ER as needed. Discharge instructions reviewed verbally and given to patient in written form. Follow up with primary care provider. Referrals and Follow-Ups: Christopher Griffith MD [Primary Care Provider] - - Critical Care Note This patient required my direct & personal management of CC.: No Attestation - Physician/ MONA Attestation Patient care was provided by Advanced Practice Provider:: No The physician spent face to face time with patient:: Yes Advanced Practice Provider documentation review:: Supervising physician onsite and consulted in the evaluation and care of this patient. The physician did have a face to face encounter with the patient. This chart was documented by the indicated scribe, (Mamta Person Scribe) and accurately reflects the services I performed and decisions made by me, Lan Alonzo MD, as attested by the provider's signature.
[2018-07-12] MEDS ORDERED: ZOFRAN IV PRN (19:25)
[2018-07-12] MEDS ORDERED: IMODIUM PO PRN (19:26)
[2018-07-12] MEDS ORDERED: LEVAQUIN 500 MG/D5W 500 MG/100 ML IVPB IV SCH (20:00)
[2018-07-12] MEDS: HUMULIN R SUBQ SCH ×2 (20:04→21:55)
--- NOTE | 2018-07-12 20:11 | HISTORY AND PHYSICAL ---
CHIEF COMPLAINT: 1. Nausea, vomiting, diarrhea for the last 1 day. 2. 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 HISTORY OF PRESENT ILLNESS: He is a 73-year-old white male patient of Dr. Griffith with a history of prostatitis in the past, TURP, who basically came in with gastroenteritis symptoms for the last 1 day, then started having perianal pain. The patient came to the ER. In the ER, the physician did a rectal exam showing the prostate is boggy and tender. Basically, he is admitted to the hospital with #1: Acute prostatitis. #2: Gastroenteritis symptoms for further workup. As a result, a hospital admission was warranted. PAST MEDICAL HISTORY: History of prostatitis, BPH, history of kidney stones, hyperlipidemia, acid reflux disease, chronic anxiety, type 2 diabetes. PAST SURGICAL HISTORY: Reported TURP, lithotripsy, cholecystectomy, appendectomy. HOME MEDICATIONS: 1. Nexium 20 mg daily. 2. Lipitor 10 mg at bedtime. 3. BuSpar 50 mg daily. 4. Aspirin 81 mg daily. 5. Metformin 500 daily. 6. Pepcid 40 mg daily. ALLERGIES: Reported to [employer]. SOCIAL HISTORY: He lives in [place]. He is . Father of 2 children. He is pretty active raising 2 chicken plants and he stopped smoking 17 years ago. No alcohol. FAMILY HISTORY: Father at the age of 80 with OK. Mom at 47 with a fall sustaining an injury to the brain. Brother had a pulmonary embolism. REVIEW OF SYSTEMS: HEENT: No headache. No vision problem. No earache. No sore throat. Neck: No neck pain no goiter no lymphadenopathy. Cardiopulmonary: No chest pain, shortness of breath, PND, orthopnea. Gastrointestinal: Nausea, vomiting, diarrhea. No bleeding per rectum. Genitourinary: Perirectal pain. No dysuria, hesitancy or frequency. No swelling of legs. No joint pain. Neurologic: No focal symptoms or weakness. PHYSICAL EXAMINATION: VITAL SIGNS: Temperature is 98 degrees, pulse 74, blood pressure is 112/64. 5 feet 8, 212 pounds. HEENT: Atraumatic, normocephalic. Pupils equal, react to light. No anemia. No cyanosis. No jaundice. NECK: Supple. No lymphadenopathy. No JVD is not elevated. CHEST: Bilateral air entry. HEART: Sounds are regular. No murmur. ABDOMEN: Belly is soft, nontender. Good bowel sounds and umbilical hernia present. EXTREMITIES: No peripheral edema, cyanosis. NEUROLOGIC: No obvious neurological deficits. INVESTIGATIONS: CBC: White cell count 7.5, hematocrit 42, platelets 147,000. Sodium 139, potassium 4.2, BUN 23, creatinine 1.2, glucose 115. Cardiac enzymes were negative. Urinalysis is negative, but prostate exam is tender as per emergency physician. ASSESSMENT AND PLAN: 1. A 73-year-old white male initially came in with gastroenteritis symptoms for the last 2 days. Etiology is not clear and continue IV fluids. 2. Prostatitis. We will use IV Levaquin. Follow up on urine culture. Reconcile home medicines. 3. Deep vein thrombosis and gastrointestinal prophylaxis as per order sheet. 4. Dr. Griffith is going to follow up and the symptomatic treatment for diarrhea, nausea with Imodium and Zofran. cc: Akira Larose MD
[2018-07-12] MEDS ORDERED: LIPITOR PO SCH (21:00)
[2018-07-12] MEDS ORDERED: ASPIRIN EC PO SCH (21:00)
[2018-07-13] MEDS ORDERED: SULFAMETHOXAZOLE IV SCH (06:00)
[2018-07-13] MEDS ORDERED: TRIMETHOPRIM IV SCH (06:00)
[2018-07-13] MEDS: HUMULIN R SUBQ SCH ×2 (06:17→17:14)
[2018-07-13 07:33] LABS: HEMOGLOBIN 12.3 g/dL (14.0-18.0); MCH 28.3 PG (27-31); MCHC 32.4 g/dL (33-37); MCV 87.4 FL (81-99); MPV 10.3 FL (7.4-10.4); RBC 4.35 XMIL (4.7-6.1); RDW 14.2 % (11.5-14.5); WBC 4.92 X1000 (4.8-10.8)
[2018-07-13 07:51] LABS: HEMOGLOBIN A1C 5.8 % (4.8-6.0)
[2018-07-13 08:03] LABS: AGAP 10; BUN 19 mg/dL (8-22); CALCIUM 7.7 mg/dL (8.8-10.2); CHLORIDE 109 mmol/L (98-107); COSMO 278; CREATININE 1.1 mg/dL (0.7-1.2); ESTIMATED GFR > 60; GLUCOSE 101 mg/dL (70-104); POTASSIUM 3.7 mmol/L (3.5-5.1); SODIUM 138 mmol/L (136-145); TCO2 19 mmol/L (25-35)
[2018-07-13] MEDS ORDERED: PEPCID PO SCH (09:00)
[2018-07-13] MEDS ORDERED: LOVENOX SUBQ SCH (09:00)
[2018-07-13] MEDS ORDERED: BUSPAR PO SCH (09:00)
[2018-07-13] MEDS ORDERED: NEXIUM PO SCH (09:00)
[2018-07-13 15:43] VITALS: BP 123/60
--- NOTE | 2018-07-13 18:50 | PROGRESS NOTE ---
DATE: 07/13/2018 SUBJECTIVE: The patient during the day, has done better. He has had no abdominal pain. No nausea or vomiting. He has had no more loose stools since this morning. He recalls bumping his tailbone area, jarring it significantly when he went off the age of a covert while he was riding on his riding lawnmower just prior to onset of his rectal pain. He thinks that was what was causing his rectal pain rather than it being prostatitis. OBJECTIVE: Vital signs: Afebrile, pulse 61, respirations 20, blood pressure 123/60, O2 saturation on room air 96%. Cardiovascular: RRR. Lungs: Clear. Abdomen: Soft, protuberant. Active bowel sounds. NT, ND. No mass. No HSM. Extremities: No calf tenderness, cords or edema. Neurologic: Nonfocal. LAB DATA: Reviewed lab data showing white count 7.5 on admission, 4.9 this morning. Hemoglobin 12.3 after hydration, platelets 122,000. Sodium 138, potassium 3.7, chloride 109, CO2 of 19, BUN 19, creatinine 1.1, blood sugar 101, calcium 7.7. LFTs on admission normal. A1c 5.8, PSA 0.9. Troponin less than 0.01. Total CK 147. Urinalysis showed trace protein, otherwise, negative. ASSESSMENT: 1. Acute gastroenteritis. 2. Rectal pain thought related to trauma that is now gone away. 3. History of remote prostatitis. 4. Type 2 diabetes mellitus, well controlled on metformin. 5. Gastroesophageal reflux disease. 6. Hypercholesterolemia. 7. Generalized anxiety disorder. PLAN: Discussed with the patient and discharged home on home medications of Lipitor, Nexium, BuSpar, aspirin, metformin and Pepcid and we will leave him off antibiotics at this time. Advised him to avoid milk products for about 3 to 4 days and to have heavy fluid intake, bland diet. He will call and make an appointment to see me in 1 week. He knows to come in should his rectal pain worsen or his fever come up, or any difficulties at all he knows to come in sooner. Otherwise, with normal urine and PSA I feel like that rectal pain was related to the trauma and with normal white count. cc: MD Akira Carcamo MD
== END 2018-07-13 18:22 | disposition home or self-care (01) | DRG 641 ==
LOC: SUPCPDRO → ED 15:28 → 3N 18:25
PROVIDERS: ADMIT Internal Medicine; ATTEND Family Medicine
CPT/HCPCS: 80048; 80053; 81001; 82550; 82948; 83036; 84153; 84484; 85025; 85027; 87045; 87046; 87088; 87205; 87324; 89055; 93005; A9270; C9113; J1650; J1956; J2405; J2550; J7030; S0164; XXXXX